=== PATIENT | female | born 1975 | race African-American/Black ===

== ENCOUNTER 2018-04-02 16:49 | Emergency (ER) | payer OTHER, MEDICAID, SELFPAY ==
[2018-04-02 16:56] VITALS: BP 129/88; PULSE 94; RESP 16; TEMP 36.8; O2SAT 100; BMI 41.6
--- NOTE | 2018-04-02 17:14 | DI.RAD.S_ITS ---
PROCEDURE: XR CHEST 2V INDICATIONS: L side chest pain, dyspnea TECHNIQUE: 2 views of the chest were acquired. COMPARISON: None. FINDINGS: Surgical changes and devices: None. Lungs and pleura: No pleural effusions or pneumothorax. Lungs are clear. Mediastinum: Mediastinal contours are normal. Heart size is normal. Bones and chest wall: No suspicious bony abnormalities. Soft tissues appear unremarkable. IMPRESSION: Normal for age. Source of current symptoms is not seen. Dictated by: Bonifacio Bruno M.D. on 04/02/2018 at 17:39 Approved by: Bonifacio Bruno M.D. on 04/02/2018 at 17:40
[2018-04-02 18:34] LABS: Add Manual Diff / Slide Review NO; Basophils Percent Auto 0.6 % (0-2); Eosinophils Percent Auto 0.8 % (2-4); Hemoglobin 14.5 g/dL (12.0-16.0); Lymphocytes Percent Auto 29.3 % (25-40); Mean Corpuscular HGB Conc 34.5 % (30-36); Mean Corpuscular Hemoglobin 31.1 PG (26-34); Mean Corpuscular Volume 90.2 fL (80-100); Monocytes Percent Auto 9.1 % (3-14); Neutrophils Absolute Auto 5000 /uL (3000-5900); Neutrophils Percent Auto 60.2 % (50-75); Platelet Count 201 X10^3/uL (150-400); Red Blood Cell Count 4.66 X10^6/uL (4.0-5.2); Red Cell Distribution Width 12.2 % (11.6-14.8); White Blood Cell Count 8.3 X10^3/uL (4.5-11.0)
[2018-04-02 18:42] LABS: Alanine Aminotransferase 54 IU/L (9-52); Albumin 4.1 g/dL (3.5-5.0); Albumin Globulin Ratio 1.2 (1.0-2.8); Alkaline Phosphatase 58 U/L (38-126); Aspartate Aminotransferase 32 IU/L (14-36); Bilirubin Total 0.7 mg/dL (0.2-1.3); Blood Urea Nitrogen 8 mg/dL (7-17); Calcium 9.3 mg/dL (8.4-10.2); Carbon Dioxide 27 mmol/L (22-32); Chloride 102 mmol/L (98-107); Creatine Kinase 47 U/L (30-135); Estimated Glomerular Filt Rate > 60.0 mL/min (>60); Globulin 3.3 g/dL (1.7-4.1); Glucose 147 mg/dL (70-100); HEMOLYSIS < 15 (0-50); Lipase 43 U/L (23-300); Potassium 3.8 mmol/L (3.4-5.1); Sodium 142 mmol/L (137-145); Total Protein 7.4 g/dL (6.3-8.2)
[2018-04-02 18:55] LABS: Troponin I < 0.012 ng/mL (0.01-0.034)
--- NOTE | 2018-04-02 19:48 | DI.CT.S_ITS ---
PROCEDURE: CT ANGIO CHEST PE PROTOCOL INDICATIONS: CP, SOB, travel, smoking. pleuritic. TECHNIQUE: After the administration of intravenous contrast, 2 mm thick sections acquired from the pulmonary apices to the posterior costophrenic angles. 3-dimensional maximum intensity projection (MIP) coronal and sagittal reformats were then acquired through the thorax. For radiation dose reduction, the following was used: automated exposure control, adjustment of mA and/or kV according to patient size. COMPARISON: [facility], , XR CHEST 2V, 04/02/2018, 16:51. FINDINGS: Image quality: Excellent. Pulmonary arteries: Pulmonary arteries are normal in size, and demonstrate no intraluminal filling defects to suggest central pulmonary embolism. Lungs and pleura: Lungs are clear. No pleural effusions or pneumothorax. Central and peripheral airways are patent. Mediastinum: Heart size is normal, without pericardial effusion. No mediastinal or hilar adenopathy. Thoracic aorta is normal in caliber and enhancement. Esophagus is normal in caliber, without hiatal hernia. Bones and chest wall: No suspicious bony lesions. Ribs and thoracic spine appear intact throughout. Thyroid gland appears normal. No axillary or supraclavicular adenopathy. Abdomen: Visualized upper abdominal solid organs appear normal in the early arterial phase of enhancement except for generalized fatty infiltration throughout the liver. IMPRESSION: No pulmonary embolus seen. Moderately reduced inspiratory volume. Fatty infiltration throughout the liver. No definite acute disease. Dictated by: Bonifacio Bruno M.D. on 04/02/2018 at 20:41 Approved by: Bonifacio Bruno M.D. on 04/02/2018 at 20:43
[2018-04-02 19:59] VITALS: BP 117/86; PULSE 77; RESP 18; O2SAT 98
--- NOTE | 2018-04-02 19:59 | ED_ITS ---
HPI - Chest Pain General Chief Complaint: Chest Pain Stated Complaint: SOB, CP Time Seen by Provider: 04/02/18 19:32 Source: patient Mode of arrival: ambulatory Limitations: no limitations History of Present Illness HPI narrative: 42-year-old former smoker and diabetic presents to the emergency department with a chief complaint of sharp and stabbing left anterior chest pain that started at 9:00 a.m.. It has been gradually worsening over the course of the day but she denies any radiation. Her pain is worse with motion, palpation and deep breath. She admits to increasing shortness of breath as well. She denies any history of the same. She denies any recent illness with runny nose, sore throat or cough. She does have a history of recent travel but denies any cancer, prior clots, injuries or surgeries. MD complaint: chest pain Onset (ago): hour(s) Duration: intermittent Onset: during rest Pain location: left chest Severity: moderate Quality: sharp Pain radiation: none Relieving factors: nothing Exacerbating factors: inspiration, palpation and movement Context: recent travel Associated symptoms: dyspnea Related Data On Oral Contraceptives: No Previous Rx's Medication Instructions Recorded cyclobenzaprine 10 mg PO TID PRN #14 tab 04/02/18 Allergies Allergy/AdvReac Type Severity Reaction Status Date / Time aspirin Allergy Verified 04/02/18 18:01 Review of Systems Review of Systems All systems reviewed & are unremarkable except as noted in HPI and below Constitutional Denies chills, Denies fever(s), Denies lethargy and Denies weakness Eyes Denies change in vision, Denies eye discharge, Denies irritation and Denies loss of vision ENT Ears, Nose, Mouth, and Throat: Denies change in voice, Denies neck pain and Denies sore throat Cardiovascular Reports chest pain, Denies irregular heart rhythm, Denies lightheadedness, Denies palpitations, Reports dyspnea, Denies dyspnea on exertion and Denies orthopnea Respiratory Denies cough, Reports dyspnea, Denies dyspnea on exertion and Denies wheezing Gastrointestinal Gastrointestinal: Denies abdominal pain, Denies change in bowel habits, Denies diarrhea, Denies nausea and Denies vomiting Genitourinary Denies hematuria, Denies flank pain, Denies urinary incontinence and Denies urinary urgency Musculoskeletal Denies neck pain Integumentary/Breasts Denies pruritus, Denies erythema, Denies rash and Denies wounds Neurologic Denies confusion, Denies loss of vision and Denies weakness Psychiatric Denies anxiety, Denies confusion, Denies depression, Denies homicidal ideation and Denies suicidal ideation Endocrine Denies palpitations Hematologic/Lymphatic Denies easy bruising Allergic/Immunologic Denies wheezing [facility] Social History Smoking Status: Former smoker Exam Narrative Exam Narrative: 42-year-old female resting comfortably Initial Vital Signs Initial Vital Signs: Vital Signs Temperature 98.3 F 04/02/18 16:56 Pulse Rate 94 H 04/02/18 16:56 Respiratory Rate 16 04/02/18 16:56 Blood Pressure 129/88 04/02/18 16:56 Pulse Oximetry 100 04/02/18 16:56 Const General: cooperative, well developed and in distress Nutritional Appearance: well nourished Orientation: alert, awake, oriented x3 and not confused HENMT Head: normocephalic and atraumatic Ears: external ears normal and TM's normal bilaterally Nose: external nose normal and No nasal discharge Face and sinus: sinuses nontender, face symmetric, no sinus tenderness and No dry mucous membranes Mouth: oral mucosae normal and moist mucous membranes Teeth and gingiva: dentition normal Throat: tonsils normal and uvula midline Eyes General: appearance normal, both eyes and all related structures Eyelids: eyelids normal Conjunctivae: conjunctivae normal Sclera: sclerae normal Pupils: PERRL EOM: EOM intact bilaterally Neck Neck: normal visual inspection, trachea midline, No lymphadenopathy, No midline deformity and No JVD Lymphatic: No lymphedema Chest Chest: normal inspection of the chest Resp Effort & Inspection: normal respiratory effort, able to speak in complete sentences, no respiratory distress and no use of accessory muscles Auscultation: clear to auscultation bilaterally, no rales, no rhonchi and no wheezes Cardio Rate: regular rate Rhythm: regular rhythm Heart Sounds: no click, no gallops, no murmurs and no rubs Pulses: normal peripheral pulses GI Inspection: non-distended Palpation: soft, no hepatosplenomegaly, No guarding, No pulsatile mass and No tender Auscultation: normal bowel sounds Back/Spine/Pelvis Back: No CVA tenderness Cervical Spine: cervical ROM normal and No pain with cervical ROM Thoracic/Lumbar Spine: thoracic and lumbar spine normal to inspection Skin General: no rashes or lesions noted, No jaundice and No petechiae Neuro General: alert, oriented x3, gait normal and no focal motor deficits Speech: speech normal Extrem General: full ROM, no clubbing, cyanosis or edema, no pedal edema and no calf tenderness Psych Appearance: well kempt Mental Status: mental status grossly normal Attitude: cooperative Thought Content: normal and suicidality Judgment: judgment good Scores HEART Score Heart Score history: Slightly Suspicious Heart Score EKG: Normal Heart Score Age: < 45 years old Heart Score risk factors: 1-2 risk factors Heart Score troponin: < or = to normal limit Heart Score Total: 1 Course Orders Ordered: ED Orders 04/02/18 16:55 EKG-12 Lead Stat 04/02/18 17:14 Chest [XR chest 2V] Stat 04/02/18 18:20 Complete Blood Count AUTO DIFF Stat Comprehensive Metabolic Panel Stat Lipase Stat Troponin & CK Cardiac Panel Stat 04/02/18 19:48 CT angio chest PE protocol Stat EKG-12 Lead Stat 04/02/18 19:55 Troponin I Stat Discontinued Medications Cyclobenzaprine HCl (Flexeril 10 Mg Prepack) 1 bottle MISC SEEINSTR ONE Stop: 04/02/18 21:08 Last Admin: 04/02/18 21:31 Dose: 1 bottle Vital Signs - 8 hr 04/02/18 16:56 04/02/18 19:59 04/02/18 21:17 Temperature 98.3 F Pulse Rate 94 H 77 75 Respiratory Rate 16 18 14 Blood Pressure 129/88 Blood Pressure [Right Arm] 117/86 125/88 Pulse Oximetry 100 98 98 MDM - Chest Pain Medical Records Data Attestation: I reviewed the patient's medical records. Lab Data Attestation: I reviewed the patient's lab results. Result diagrams: 04/02/18 18:20 04/02/18 18:20 Lab Results 04/02/18 04/02/18 04/02/18 Range/Units 18:20 18:20 19:55 WBC 8.3 (4.5-11.0) X10^3/uL RBC 4.66 (4.0-5.2) X10^6/uL Hgb 14.5 (12.0-16.0) g/dL Hct 42.0 (36-46) % MCV 90.2 (80-100) fL MCH 31.1 (26-34) PG MCHC 34.5 (30-36) % RDW 12.2 (11.6-14.8) % Plt Count 201 (150-400) X10^3/uL Neut % (Auto) 60.2 (50-75) % Lymph % (Auto) 29.3 (25-40) % [place] % (Auto) 9.1 (3-14) % Eos % (Auto) 0.8 L (2-4) % Baso % (Auto) 0.6 (0-2) % Neut # (Auto) 5000 (8120-4570) /uL Sodium 142 (137-145) mmol/L Potassium 3.8 (3.4-5.1) mmol/L Chloride 102 (98-107) mmol/L Carbon Dioxide 27 (22-32) mmol/L BUN 8 (7-17) mg/dL Creatinine 0.40 L (0.52-1.04) mg/dL Estimated GFR > 60.0 (>60) mL/min BUN/Creatinine Ratio 20.0 (6-22) Glucose 147 H (70-100) mg/dL Calcium 9.3 (8.4-10.2) mg/dL Total Bilirubin 0.7 (0.2-1.3) mg/dL AST 32 (14-36) IU/L ALT 54 H (9-52) IU/L Alkaline Phosphatase 58 (38-126) U/L Total Creatine Kinase 47 (30-135) U/L CK-MB (CK-2) TNP CK-MB (CK-2) Rel Index TNP Troponin I < 0.012 < 0.012 (0.01-0.034) ng/mL Total Protein 7.4 (6.3-8.2) g/dL Albumin 4.1 (3.5-5.0) g/dL Globulin 3.3 (1.7-4.1) g/dL Albumin/Globulin Ratio 1.2 (1.0-2.8) Lipase 43 (23-300) U/L Imaging Data Chest x-ray: Radiologist's impression: [address] [place] [address] XRay Report Signed Patient: KavonKrystle#: [id number] : 1975Acct:[id number] Age/Sex: 42 / FDate of Service: 04/02/18 Loc: ED Accession Number: [id number] Procedure: XR chest 2V Ordering Provider: Shelby Cuevas D.O. PROCEDURE: XR CHEST 2V INDICATIONS: L side chest pain, dyspnea TECHNIQUE: 2 views of the chest were acquired. COMPARISON: None. FINDINGS: Surgical changes and devices: None. Lungs and pleura: No pleural effusions or pneumothorax. Lungs are clear. Mediastinum: Mediastinal contours are normal. Heart size is normal. Bones and chest wall: No suspicious bony abnormalities. Soft tissues appear unremarkable. IMPRESSION: Normal for age. Source of current symptoms is not seen. Dictated by: Bonifacio Bruno M.D. on 04/02/2018 at 17:39 Approved by: Bonifacio Bruno M.D. on 04/02/2018 at 17:40 CT scan - chest: Radiologist's impression: No PE or other acute process ECG Data Attestation: I personally reviewed and interpreted this ECG as follows: Prior ECG tracings: not available for review Interpretation: EKG is normal sinus rhythm and free of any signs of ischemia or ectopy. MDM Narrative Medical decision making narrative: Cardiac ischemia considered as a diagnosis but sharp, stabbing reproducible pain and lack of other more traditional cardiac equivalent symptoms in the setting of multiple normal EKGs, repeat troponins normal, and low heart score make ischemia less likely Pulmonary embolism considered given pleuritic type chest pain and associated dyspnea but CT angiogram, normal labs and vital signs make this less likely Discharge Plan Departure Patient Disposition: Home Clinical Impression: Pleurisy Discharge Date/Time: 04/02/18 21:39 Interventions: ED Discharge Assessment Last Done: 04/02/18 21:36 Instructions: DI for Pleurisy Activity Restrictions/Additional Instructions: *You have been diagnosed with pleurisy *What to do: *Take medications as directed: [id number] Tylenol and Motrin for pain *Follow up with your primary care provider in 2-3 days, call for an appointment. Let them know you were seen in the Emergency Department and that we ask that you be seen in follow up *Return to ER if you should have any new, worsening or concerning symptoms Prescriptions: New cyclobenzaprine 10 mg tablet 10 mg PO TID PRN (Reason: muscle spasm) Qty: 14 RF: 0 Referrals: Ventura Soto MD [Physician] - Diaz Damon MD [Physician] - Paty Schuster DO [Physician] - Stand Alone Forms: Work/School Restrictions
[2018-04-02 20:43] LABS: Troponin I < 0.012 ng/mL (0.01-0.034)
[2018-04-02 21:17] VITALS: BP 125/88; PULSE 75; RESP 14; O2SAT 98
[2018-04-02] MEDS: CYCLOBENZAPRINE 10 MG PREPACK 1 BOTTLE MISC (21:31)
== END 2018-04-02 21:39 | disposition home or self-care (01) ==
PROVIDERS: Emergency Medicine; Emergency Provider Emergency Medicine
DX: R09.1 Pleurisy (principal); R07.89 Other chest pain
CPT/HCPCS: 36415; 36591; 71046; 71275; 80053; 82550; 83690; 84484; 85025; 93005; 93010; 99282; 99285; Q9967

== ENCOUNTER 2018-05-06 17:19 | Observation (INO) | payer OTHER, MEDICAID, SELFPAY ==
[2018-05-06 17:25] VITALS: BP 147/98; PULSE 72; RESP 16; TEMP 36.2; O2SAT 98; BMI 36.9
[2018-05-06 18:53] LABS: Add Manual Diff / Slide Review NO; Basophils Percent Auto 0.3 % (0-2); Eosinophils Percent Auto 0.1 % (2-4); Hematocrit 43.2 % (36-46); Hemoglobin 14.9 g/dL (12.0-16.0); Lymphocytes Percent Auto 14.6 % (25-40); Mean Corpuscular HGB Conc 34.5 % (30-36); Mean Corpuscular Hemoglobin 31.3 PG (26-34); Mean Corpuscular Volume 90.7 fL (80-100); Monocytes Percent Auto 4.9 % (3-14); Neutrophils Absolute Auto 8300 /uL (3000-5900); Neutrophils Percent Auto 80.1 % (50-75); Platelet Count 222 X10^3/uL (150-400); Red Blood Cell Count 4.76 X10^6/uL (4.0-5.2); Red Cell Distribution Width 12.4 % (11.6-14.8); White Blood Cell Count 10.3 X10^3/uL (4.5-11.0)
[2018-05-06 19:01] LABS: INR 1.1 (0.9-1.3); Prothrombin Time 12.4 SECONDS (10.1-12.7)
[2018-05-06 19:04] LABS: PTT Partial Thromboplastin Tim 30 SECONDS (26.4-36.2)
[2018-05-06 19:06] LABS: Alanine Aminotransferase 49 IU/L (9-52); Albumin 4.4 g/dL (3.5-5.0); Albumin Globulin Ratio 1.3 (1.0-2.8); Alkaline Phosphatase 64 U/L (38-126); Aspartate Aminotransferase 25 IU/L (14-36); BUN Creatinine Ratio 17.5 (6-22); Bilirubin Total 0.5 mg/dL (0.2-1.3); Blood Urea Nitrogen 7 mg/dL (7-17); Calcium 8.9 mg/dL (8.4-10.2); Carbon Dioxide 27 mmol/L (22-32); Chloride 100 mmol/L (98-107); Estimated Glomerular Filt Rate > 60.0 mL/min (>60); Globulin 3.5 g/dL (1.7-4.1); Glucose 276 mg/dL (70-100); HEMOLYSIS < 15 (0-50); Lipase 45 U/L (23-300); Potassium 4.1 mmol/L (3.4-5.1); Sodium 139 mmol/L (137-145); Total Protein 7.9 g/dL (6.3-8.2)
--- NOTE | 2018-05-06 20:40 | ED_ITS ---
HPI - Abdominal Pain <YOUSIF Singleton - Last Filed: 05/06/18 22:24> General Chief Complaint: Abdominal Pain Stated Complaint: ABD PAIN Time Seen by Provider: 05/06/18 20:40 Source: patient Mode of arrival: ambulatory Limitations: no limitations History of Present Illness HPI narrative: 42-year-old female with history of type 2 diabetes and PCOS that is a former smoker here for complaint of pain into her left lower abdomen since earlier today. She denies any fevers or chills. She denies any urinary symptoms. No vaginal discharge or bleeding. She denies any trauma to the abdominal area. She is tolerating p.o. intake. she denies any flank pain. No other concerns or complaints. She denies any stressors relievers of her discomfort. MD complaint: other Related Data Previous Rx's Medication Instructions Recorded cyclobenzaprine 10 mg PO TID PRN #14 tab 04/02/18 Allergies Allergy/AdvReac Type Severity Reaction Status Date / Time aspirin Allergy Verified 05/06/18 17:25 naproxen [From Aleve] Allergy Verified 05/06/18 17:25 Review of Systems <YOUSIF Singleton - Last Filed: 05/06/18 22:24> Constitutional Denies chills, Denies fever(s), Denies lethargy and Denies weakness Eyes Denies change in vision, Denies eye discharge, Denies irritation and Denies loss of vision ENT Ears, Nose, Mouth, and Throat: Denies change in voice, Denies neck pain and Denies sore throat Cardiovascular Denies chest pain, Denies irregular heart rhythm, Denies lightheadedness, Denies palpitations, Denies dyspnea, Denies dyspnea on exertion and Denies orthopnea Respiratory Denies cough, Denies dyspnea, Denies dyspnea on exertion and Denies wheezing Gastrointestinal Gastrointestinal: Reports abdominal pain, Denies change in bowel habits, Denies diarrhea, Denies nausea and Denies vomiting Genitourinary Denies hematuria, Denies flank pain, Denies urinary incontinence and Denies urinary urgency Musculoskeletal Denies neck pain Integumentary/Breasts Denies pruritus, Denies erythema, Denies rash and Denies wounds Neurologic Denies confusion, Denies loss of vision and Denies weakness Psychiatric Denies anxiety, Denies confusion, Denies depression, Denies homicidal ideation and Denies suicidal ideation Endocrine Denies palpitations Hematologic/Lymphatic Denies easy bruising Allergic/Immunologic Denies wheezing Exam <YOUSIF Singleton - Last Filed: 05/06/18 22:24> Initial Vital Signs Initial Vital Signs: Vital Signs Temperature 97.1 F L 05/06/18 17:25 Pulse Rate 72 05/06/18 17:25 Respiratory Rate 16 05/06/18 17:25 Blood Pressure 147/98 H 05/06/18 17:25 Pulse Oximetry 98 05/06/18 17:25 Const General: cooperative and well developed Nutritional Appearance: well nourished Orientation: alert, awake, oriented x3 and not confused HENNH Mouth: oral mucosae normal, oropharynx normal and moist mucous membranes Eyes Conjunctivae: conjunctivae normal Sclera: sclerae normal Pupils: PERRL EOM: EOM intact bilaterally GI Inspection: non-distended Palpation: soft, no hepatosplenomegaly, No guarding, No pulsatile mass and tender ( tenderness left lower quadrant) Auscultation: normal bowel sounds General: No CVA tenderness Skin General: no rashes or lesions noted, No jaundice and No petechiae Neuro General: alert, oriented x3, gait normal and no focal motor deficits Speech: speech normal <Yuliana Rojas DO - Last Filed: 05/07/18 03:12> Initial Vital Signs Initial Vital Signs: Vital Signs Temperature 97.1 F L 05/06/18 17:25 Pulse Rate 72 05/06/18 17:25 Respiratory Rate 16 05/06/18 17:25 Blood Pressure 147/98 H 05/06/18 17:25 Pulse Oximetry 98 05/06/18 17:25 Course <YUOSIF Singleton - Last Filed: 05/06/18 22:24> Orders Ordered: ED Orders 05/06/18 18:45 Complete Blood Count AUTO DIFF Stat Comprehensive Metabolic Panel Stat Lipase Stat Partial Thromboplastin Time Stat Prothrombin Time INR Stat 05/06/18 20:55 CT abdomen pelvis w con Stat 05/06/18 22:14 US pelvic complete Stat Hydrocodone Bitart/Acetaminophen ([place] 5/325) 1 tab PO Q30MIN PRN PRN Reason: Mild or moderate pain Fentanyl (Sublimaze) 50 mcg IV Q5MIN PRN PRN Reason: Pain, Moderate (4-6) Hydromorphone HCl (Dilaudid) 0.5 mg IV Q5MIN PRN PRN Reason: Pain, Moderate (4-6) Lactated Ringer's (Lactated Ringers) 1,000 mls @ 42 mls/hr IV NOW ONE Stop: 05/08/18 01:53 Last Admin: 05/07/18 02:05 Dose: 42 mls/hr Lactated Ringer's (Lactated Ringers) 1,000 mls @ 42 mls/hr IV CONT MOIZ Metoclopramide HCl (Reglan) 10 mg IV NOW PRN PRN Reason: Nausea And Vomiting Ondansetron HCl (Zofran) 4 mg IV NOW PRN PRN Reason: Nausea And Vomiting Oxycodone/Acetaminophen (Percocet 5/325) 1 tab PO Q30MIN PRN PRN Reason: Mild or moderate pain Discontinued Medications Hydromorphone HCl (Dilaudid) 0.5 mg IV NOW ONE Stop: 05/06/18 20:58 Last Admin: 05/06/18 21:29 Dose: 0.5 mg Hydromorphone HCl (Dilaudid) 0.5 mg IV NOW ONE Stop: 05/06/18 23:12 Last Admin: 05/06/18 23:49 Dose: 0.5 mg Sodium Chloride (Normal Saline 0.9%) 1,000 mls @ 1,000 mls/hr IV BOLUS ONE Stop: 05/06/18 21:54 Last Infusion: 05/07/18 00:30 Dose: 0 mls/hr Admin: 05/06/18 21:30 Dose: 1,000 mls/hr Insulin Human Regular (Humulin R) 4 unit SUBCUT NOW ONE Stop: 05/07/18 02:13 Last Admin: 05/07/18 02:10 Dose: 4 unit Ondansetron HCl (Zofran) 4 mg IV NOW ONE Stop: 05/06/18 20:58 Last Admin: 05/06/18 21:30 Dose: 4 mg Vital Signs - 8 hr 05/07/18 01:30 05/07/18 02:08 Temperature 97.7 F Pulse Rate 75 103 H Respiratory Rate 16 15 Blood Pressure 134/78 Blood Pressure [Left Arm] 142/85 H Pulse Oximetry 98 98 <Yuliana Rojas DO - Last Filed: 05/07/18 03:12> Orders Ordered: ED Orders 05/06/18 18:45 Complete Blood Count AUTO DIFF Stat Comprehensive Metabolic Panel Stat Lipase Stat Partial Thromboplastin Time Stat Prothrombin Time INR Stat 05/06/18 20:55 CT abdomen pelvis w con Stat 05/06/18 22:14 US pelvic complete Stat Hydrocodone Bitart/Acetaminophen ([place] 5/325) 1 tab PO Q30MIN PRN PRN Reason: Mild or moderate pain Fentanyl (Sublimaze) 50 mcg IV Q5MIN PRN PRN Reason: Pain, Moderate (4-6) Hydromorphone HCl (Dilaudid) 0.5 mg IV Q5MIN PRN PRN Reason: Pain, Moderate (4-6) Lactated Ringer's (Lactated Ringers) 1,000 mls @ 42 mls/hr IV NOW ONE Stop: 05/08/18 01:53 Last Admin: 05/07/18 02:05 Dose: 42 mls/hr Lactated Ringer's (Lactated Ringers) 1,000 mls @ 42 mls/hr IV CONT MOIZ Metoclopramide HCl (Reglan) 10 mg IV NOW PRN PRN Reason: Nausea And Vomiting Ondansetron HCl (Zofran) 4 mg IV NOW PRN PRN Reason: Nausea And Vomiting Oxycodone/Acetaminophen (Percocet 5/325) 1 tab PO Q30MIN PRN PRN Reason: Mild or moderate pain Discontinued Medications Hydromorphone HCl (Dilaudid) 0.5 mg IV NOW ONE Stop: 05/06/18 20:58 Last Admin: 05/06/18 21:29 Dose: 0.5 mg Hydromorphone HCl (Dilaudid) 0.5 mg IV NOW ONE Stop: 05/06/18 23:12 Last Admin: 05/06/18 23:49 Dose: 0.5 mg Sodium Chloride (Normal Saline 0.9%) 1,000 mls @ 1,000 mls/hr IV BOLUS ONE Stop: 05/06/18 21:54 Last Infusion: 05/07/18 00:30 Dose: 0 mls/hr Admin: 05/06/18 21:30 Dose: 1,000 mls/hr Insulin Human Regular (Humulin R) 4 unit SUBCUT NOW ONE Stop: 05/07/18 02:13 Last Admin: 05/07/18 02:10 Dose: 4 unit Ondansetron HCl (Zofran) 4 mg IV NOW ONE Stop: 05/06/18 20:58 Last Admin: 05/06/18 21:30 Dose: 4 mg Vital Signs - 8 hr 05/07/18 01:30 05/07/18 02:08 Temperature 97.7 F Pulse Rate 75 103 H Respiratory Rate 16 15 Blood Pressure 134/78 Blood Pressure [Left Arm] 142/85 H Pulse Oximetry 98 98 MDM - Abdominal Pain <YOUSIF Singleton - Last Filed: 05/06/18 22:24> Differential Diagnosis Differential diagnosis: Likely abdominal pain Lab Data Result diagrams: 05/06/18 18:45 05/06/18 18:45 Lab Results 05/06/18 05/06/18 05/06/18 Range/Units 18:45 18:45 18:45 WBC 10.3 (4.5-11.0) X10^3/uL RBC 4.76 (4.0-5.2) X10^6/uL Hgb 14.9 (12.0-16.0) g/dL Hct 43.2 (36-46) % MCV 90.7 (80-100) fL MCH 31.3 (26-34) PG MCHC 34.5 (30-36) % RDW 12.4 (11.6-14.8) % Plt Count 222 (150-400) X10^3/uL Neut % (Auto) 80.1 H (50-75) % Lymph % (Auto) 14.6 L (25-40) % [place] % (Auto) 4.9 (3-14) % Eos % (Auto) 0.1 L (2-4) % Baso % (Auto) 0.3 (0-2) % Neut # (Auto) 8300 H (6960-4496) /uL PT 12.4 (10.1-12.7) SECONDS INR 1.1 (0.9-1.3) APTT 30 (26.4-36.2) SECONDS Sodium 139 (137-145) mmol/L Potassium 4.1 (3.4-5.1) mmol/L Chloride 100 (98-107) mmol/L Carbon Dioxide 27 (22-32) mmol/L BUN 7 (7-17) mg/dL Creatinine 0.40 L (0.52-1.04) mg/dL Estimated GFR > 60.0 (>60) mL/min BUN/Creatinine Ratio 17.5 (6-22) Glucose 276 H (70-100) mg/dL Calcium 8.9 (8.4-10.2) mg/dL Total Bilirubin 0.5 (0.2-1.3) mg/dL AST 25 (14-36) IU/L ALT 49 (9-52) IU/L Alkaline Phosphatase 64 (38-126) U/L Total Protein 7.9 (6.3-8.2) g/dL Albumin 4.4 (3.5-5.0) g/dL Globulin 3.5 (1.7-4.1) g/dL Albumin/Globulin Ratio 1.3 (1.0-2.8) Lipase 45 (23-300) U/L Point of care testing: Point of Care Testing Glucose POC 180 Urine Dip Bedside Urine Glucose 1000 mg/dl Bedside Urine Bilirubin - Negative Bedside Urine Ketone +++ 80 Urine Specific [place] 1.020 Bedside Urine Occult Blood - Negative Bedside Urine pH 7.0 Bedside Urine Protein +/- 15 Bedside Urine Urobilinogen - Negative Bedside Urine Nitrite - Negative Bedside Urine Leukocytes - Negative Esterase Imaging Data CT scan - abdomen: Radiologist's impression: [place] [address] CT Scan Report Signed Patient: Krystle Jacobson#: [id number] : 1975Acct:[id number] Age/Sex: 42 / FDate of Service: 05/06/18 Loc: ED Accession Number: [id number] Procedure: CT abdomen pelvis w con Ordering Provider: Raymon Sotelo PROCEDURE: CT ABDOMEN PELVIS W CON INDICATIONS: pain to bilateral lower abdomen TECHNIQUE: After the administration of intravenous contrast, 5 mm thick sections acquired from the diaphragm to the symphysis. 5 mm coronal and sagittal reformats were acquired. For radiation dose reduction, the following was used: automated exposure control, adjustment of mA and/or kV according to patient size. COMPARISON: None. FINDINGS: Image quality: Excellent. ABDOMEN: Lung bases: Lung bases are clear. Heart size is normal. Solid organs: Liver is enlarged, and demonstrate diffusely decreased density. Gallbladder is within normal limits. Biliary system is non dilated. Pancreas enhances normally. Spleen is normal in size and enhancement. No adrenal nodules. Kidneys demonstrate normal size and enhancement, without hydronephrosis. Peritoneum and bowel: Bowel loops demonstrate normal wall thickness and caliber. No free fluid or air. Normal appendix. Nodes and vessels: No retroperitoneal or mesenteric adenopathy by size criteria. Aorta and inferior vena cava are normal in size. Miscellaneous: No ventral hernias. PELVIS: Genitourinary: Bladder wall thickness is normal. 50 mm diameter region of heterogeneous mixed low and high density within the left ovary is present, with a hematocrit level. Miscellaneous: No inguinal hernias or adenopathy. Bones: No suspicious bony lesions. Large expansile sacral cyst is present. No vertebral body compression fractures. IMPRESSION: 1. Findings suggestive of a hemorrhagic left ovarian cyst; further assessment with ultrasound is recommended. 2. Normal appendix. 3. Hepatic steatosis. 4. Large expansile sacral cyst. This could be further assessed with MRI. Dictated by: Nara Stephens M.D. on 05/06/2018 at 21:56 Approved by: Nara Stephens M.D. on 05/06/2018 at 21:59 MDM Narrative Medical decision making narrative: CBC shows elevated neutrophils otherwise is unremarkable. Coags are unremarkable. Chem panel was shows glucose at 276 otherwise is unremarkable. Urinalysis was negative for urinary tract infection. CT the abdomen was obtained and shows findings consistent with left hemorrhagic cyst. pelvic Ultrasound is ordered for further evaluation. incidental finding of sacral cyst is seen and also hepatic steatosis. She is encouraged to establish primary care for follow-up. Due to change of shift care is turned over to Dr. Rojas. <Yuliana Rojas, DO - Last Filed: 05/07/18 03:12> Lab Data Attestation: I reviewed the patient's lab results. Lab Results 05/06/18 05/06/18 05/06/18 Range/Units 18:45 18:45 18:45 WBC 10.3 (4.5-11.0) X10^3/uL RBC 4.76 (4.0-5.2) X10^6/uL Hgb 14.9 (12.0-16.0) g/dL Hct 43.2 (36-46) % MCV 90.7 (80-100) fL MCH 31.3 (26-34) PG MCHC 34.5 (30-36) % RDW 12.4 (11.6-14.8) % Plt Count 222 (150-400) X10^3/uL Neut % (Auto) 80.1 H (50-75) % Lymph % (Auto) 14.6 L (25-40) % [place] % (Auto) 4.9 (3-14) % Eos % (Auto) 0.1 L (2-4) % Baso % (Auto) 0.3 (0-2) % Neut # (Auto) 8300 H (0566-7248) /uL PT 12.4 (10.1-12.7) SECONDS INR 1.1 (0.9-1.3) APTT 30 (26.4-36.2) SECONDS Sodium 139 (137-145) mmol/L Potassium 4.1 (3.4-5.1) mmol/L Chloride 100 (98-107) mmol/L Carbon Dioxide 27 (22-32) mmol/L BUN 7 (7-17) mg/dL Creatinine 0.40 L (0.52-1.04) mg/dL Estimated GFR > 60.0 (>60) mL/min BUN/Creatinine Ratio 17.5 (6-22) Glucose 276 H (70-100) mg/dL Calcium 8.9 (8.4-10.2) mg/dL Total Bilirubin 0.5 (0.2-1.3) mg/dL AST 25 (14-36) IU/L ALT 49 (9-52) IU/L Alkaline Phosphatase 64 (38-126) U/L Total Protein 7.9 (6.3-8.2) g/dL Albumin 4.4 (3.5-5.0) g/dL Globulin 3.5 (1.7-4.1) g/dL Albumin/Globulin Ratio 1.3 (1.0-2.8) Lipase 45 (23-300) U/L Point of care testing: Point of Care Testing Glucose POC 180 Urine Dip Bedside Urine Glucose 1000 mg/dl Bedside Urine Bilirubin - Negative Bedside Urine Ketone +++ 80 Urine Specific [place] 1.020 Bedside Urine Occult Blood - Negative Bedside Urine pH 7.0 Bedside Urine Protein +/- 15 Bedside Urine Urobilinogen - Negative Bedside Urine Nitrite - Negative Bedside Urine Leukocytes - Negative Esterase Imaging Data US - abdomen: Radiologist's impression: heel burnisher report: Solid heterogenicity a Coke mass in mid pelvis without discernible flow may represent left ovarian torsion. Uterus is surgically absent. Normal appearing right ovary. Echogenic mass measuring 5.9 x 4.4 x 5.7 cm likely solid MDM Narrative Medical decision making narrative: I have seen evaluated patient myself she remains tender in her left lower quadrant. Awaiting ultrasound. Left hemorrhagic cyst is seen on CT. Ultrasound confirms probable torsion 12:05 a.m. I spoke with Dr. Quinonez in regards to ultrasound report and CT both concerning for torsion [address] Montana on-call for voyage management system operator will be into ED to evaluate patient. Patient going to OR. Discharge Plan Departure Patient Disposition: Admitted as Observation Clinical Impression: Ovarian torsion, Ovarian cyst Discharge Date/Time: 05/07/18 01:45 Interventions: ED Discharge Assessment Last Done: 05/07/18 02:02 Admit Date/Time: 05/07/18 01:25 Admit Provider: Ami Montana
--- NOTE | 2018-05-06 20:55 | DI.CT.S_ITS ---
PROCEDURE: CT ABDOMEN PELVIS W CON INDICATIONS: pain to bilateral lower abdomen TECHNIQUE: After the administration of intravenous contrast, 5 mm thick sections acquired from the diaphragm to the symphysis. 5 mm coronal and sagittal reformats were acquired. For radiation dose reduction, the following was used: automated exposure control, adjustment of mA and/or kV according to patient size. COMPARISON: None. FINDINGS: Image quality: Excellent. ABDOMEN: Lung bases: Lung bases are clear. Heart size is normal. Solid organs: Liver is enlarged, and demonstrate diffusely decreased density. Gallbladder is within normal limits. Biliary system is non dilated. Pancreas enhances normally. Spleen is normal in size and enhancement. No adrenal nodules. Kidneys demonstrate normal size and enhancement, without hydronephrosis. Peritoneum and bowel: Bowel loops demonstrate normal wall thickness and caliber. No free fluid or air. Normal appendix. Nodes and vessels: No retroperitoneal or mesenteric adenopathy by size criteria. Aorta and inferior vena cava are normal in size. Miscellaneous: No ventral hernias. PELVIS: Genitourinary: Bladder wall thickness is normal. 50 mm diameter region of heterogeneous mixed low and high density within the left ovary is present, with a hematocrit level. Miscellaneous: No inguinal hernias or adenopathy. Bones: No suspicious bony lesions. Large expansile sacral cyst is present. No vertebral body compression fractures. IMPRESSION: 1. Findings suggestive of a hemorrhagic left ovarian cyst; further assessment with ultrasound is recommended. 2. Normal appendix. 3. Hepatic steatosis. 4. Large expansile sacral cyst. This could be further assessed with MRI. Dictated by: Nara Stephens M.D. on 05/06/2018 at 21:56 Approved by: Nara Stephens M.D. on 05/06/2018 at 21:59
[2018-05-06] MEDS: HYDROMORPHONE 1 MG INJ 0.5 MG IV ×2 (21:29→23:49)
[2018-05-06] MEDS: ONDANSETRON 4 MG/2 ML INJ IV (21:30)
[2018-05-06] MEDS: SODIUM CHLORIDE 0.9% 1,000 ML 1000 ML IV (21:30)
--- NOTE | 2018-05-06 22:14 | DI.US.S_ITS ---
PROCEDURE: US PELVIC COMPLETE INDICATIONS: Ruptured ovarian cyst to left ovary seen on CT TECHNIQUE: Real-time scanning was performed of the pelvic organs, with image documentation. Additional endovaginal scanning was necessary due to incomplete visualization of the adnexal and endometrial structures by transabdominal scanning. COMPARISON: None. FINDINGS: Transabdominal scanning: Limited scanning through the kidneys shows no hydronephrosis. No pathologic free abdominal or pelvic fluid. Endovaginal scanning: Uterus: Uterus is surgically absent. Ovaries: Right adnexa measures 2.8 x 1.9 x 2.9 cm. Right adnexa is sonographically normal there is a 5.9 x 4.4 x 5.7 cm mid pelvic mass. Color Doppler evaluation demonstrates no increased vascularity within the lesion. Lesion may represent a left ovarian torsion. IMPRESSION: 1. Heterogeneously echogenic mid pelvic mass which lacks discernible internal vascular flow. Finding is nonspecific, but may represent left ovarian torsion. Recommend gynecologic consultation. 2. Uterus is surgically absent. 3. Right adnexa is sonographically normal. Dictated by: Judith Valentin MD, PhD on 05/07/2018 at 8:29 Approved by: Judith Valentin MD, PhD on 05/07/2018 at 8:32
[2018-05-07] VITALS (11 sets, daily range): BP systolic 119–142; BP diastolic 77–89; PULSE 75–103; RESP 15–20; TEMP 36.4–36.6; O2SAT 89–99; BMI 36.9
--- NOTE | 2018-05-07 00:52 | PC.NURSE ---
Dr Montana at bedside.
--- NOTE | 2018-05-07 01:17 | PM.GYNHP.1 ---
History of Present Illness Reason for admission: other (Left ovarian mass possible torsion) Narrative: Krystle Jacobson is a 42 year old female presented to the emergency room complaining of pain and in evaluation found to have a left ovarian mass possible torsion [facility] Medical History Diabetes (Acute) Surgical History S/P hysterectomy (Acute) Social History Smoking Status: Former smoker Meds Home Medications Medication Instructions Recorded Confirmed Type cyclobenzaprine 10 mg PO TID PRN #14 tab 04/02/18 Rx Allergies Allergy/AdvReac Type Severity Reaction Status Date / Time aspirin Allergy Verified 05/06/18 17:25 naproxen [From Aleve] Allergy Verified 05/06/18 17:25 Review of Systems Review of Systems Patient complains mild nausea. She complains of left lower quadrant pain. All systems reviewed & are unremarkable except as noted in HPI and below Exam Vital Signs (past 8 hours): - 05/06/18 17:25 Temperature 97.1 F L Pulse Rate 72 Respiratory Rate 16 Blood Pressure 147/98 H Pulse Oximetry 98 Oxygen Delivery Method Room Air Narrative Exam Narrative: Patient's HEENT exam within normal limits. No thyromegaly. Lungs are clear to auscultation percussion. Heart is regular rate and rhythm no S3-S4 or murmurs. Abdomen is soft with tenderness left lower quadrant without rebound. Objective Imaging US - abdomen: Radiologist's impression: Solid heterogeneous echogenic mass mid pelvis without discernible blood flow may represent left ovarian torsion Labs Result Diagrams: 05/06/18 18:45 05/06/18 18:45 Labs: Laboratory Results - last 24 hr 05/06/18 05/06/18 05/06/18 18:45 18:45 18:45 WBC 10.3 RBC 4.76 Hgb 14.9 Hct 43.2 MCV 90.7 MCH 31.3 MCHC 34.5 RDW 12.4 Plt Count 222 Neut % (Auto) 80.1 H Lymph % (Auto) 14.6 L [place] % (Auto) 4.9 Eos % (Auto) 0.1 L Baso % (Auto) 0.3 Neut # (Auto) 8300 H PT 12.4 INR 1.1 APTT 30 Sodium 139 Potassium 4.1 Chloride 100 Carbon Dioxide 27 BUN 7 Creatinine 0.40 L Estimated GFR > 60.0 BUN/Creatinine Ratio 17.5 Glucose 276 H Calcium 8.9 Total Bilirubin 0.5 AST 25 ALT 49 Alkaline Phosphatase 64 Total Protein 7.9 Albumin 4.4 Globulin 3.5 Albumin/Globulin Ratio 1.3 Lipase 45 Assessment & Plan (1) Ovarian cyst: Qualifiers: Laterality: left Qualified Code(s): N83.202 - Unspecified ovarian cyst, left side Current visit: Yes Status: Acute Plan: Assessment/Plan Narrative: Left lower quadrant pain and 5 cm mass that may represent left ovarian torsion. Discussed options of monitoring versus proceeding with laparoscopy. If torsion we may be able to save ovary by untwisting or may need to remove ovary. Consent form was reviewed with the patient. Risk of damage to intestines, bladder, ureters, possible need to open abdomen,low risk for infection. Consent form was signed and questions answered. Discussed post op discomforts. Patient will be discharged after surgery as soon as ambulatory and able to tolerate oral pain meds.
--- NOTE | 2018-05-07 01:28 | P.HPOB_ITS ---
History of Present Illness Reason for admission: other (Left ovarian mass possible torsion) Narrative: Krystle Jacobson is a 42 year old female presented to the emergency room complaining of pain and in evaluation found to have a left ovarian mass possible torsion [facility] Medical History Diabetes (Acute) Surgical History S/P hysterectomy (Acute) Social History Smoking Status: Former smoker Meds Home Medications Medication Instructions Recorded Confirmed Type cyclobenzaprine 10 mg PO TID PRN #14 tab 04/02/18 Rx Allergies Allergy/AdvReac Type Severity Reaction Status Date / Time aspirin Allergy Verified 05/06/18 17:25 naproxen [From Aleve] Allergy Verified 05/06/18 17:25 Review of Systems Review of Systems Patient complains mild nausea. She complains of left lower quadrant pain. All systems reviewed & are unremarkable except as noted in HPI and below Exam Vital Signs (past 8 hours): - 05/06/18 17:25 Temperature 97.1 F L Pulse Rate 72 Respiratory Rate 16 Blood Pressure 147/98 H Pulse Oximetry 98 Oxygen Delivery Method Room Air Narrative Exam Narrative: Patient's HEENT exam within normal limits. No thyromegaly. Lungs are clear to auscultation percussion. Heart is regular rate and rhythm no S3-S4 or murmurs. Abdomen is soft with tenderness left lower quadrant without rebound. Objective Imaging US - abdomen: Radiologist's impression: Solid heterogeneous echogenic mass mid pelvis without discernible blood flow may represent left ovarian torsion Labs Result Diagrams: 05/06/18 18:45 05/06/18 18:45 Labs: Laboratory Results - last 24 hr 05/06/18 05/06/18 05/06/18 18:45 18:45 18:45 WBC 10.3 RBC 4.76 Hgb 14.9 Hct 43.2 MCV 90.7 MCH 31.3 MCHC 34.5 RDW 12.4 Plt Count 222 Neut % (Auto) 80.1 H Lymph % (Auto) 14.6 L [place] % (Auto) 4.9 Eos % (Auto) 0.1 L Baso % (Auto) 0.3 Neut # (Auto) 8300 H PT 12.4 INR 1.1 APTT 30 Sodium 139 Potassium 4.1 Chloride 100 Carbon Dioxide 27 BUN 7 Creatinine 0.40 L Estimated GFR > 60.0 BUN/Creatinine Ratio 17.5 Glucose 276 H Calcium 8.9 Total Bilirubin 0.5 AST 25 ALT 49 Alkaline Phosphatase 64 Total Protein 7.9 Albumin 4.4 Globulin 3.5 Albumin/Globulin Ratio 1.3 Lipase 45 Assessment & Plan (1) Ovarian cyst: Qualifiers: Laterality: left Qualified Code(s): N83.202 - Unspecified ovarian cyst , left side Current visit: Yes Status: Acute Plan: Assessment/Plan Narrative: Left lower quadrant pain and 5 cm mass that may represent left ovarian torsion. Discussed options of monitoring versus proceeding with laparoscopy. If torsion we may be able to save ovary by untwisting or may need to remove ovary. Consent form was reviewed with the patient. Risk of damage to intestines, bladder, ureters, possible need to open abdomen,low risk for infection. Consent form was signed and questions answered. Discussed post op discomforts. Patient will be discharged after surgery as soon as ambulatory and able to tolerate oral pain meds.
[2018-05-07] MEDS: LACTATED RINGERS 1,000 ML 42 ML IV (02:05)
[2018-05-07] MEDS: INSULIN REGULAR 100 UNIT/ML 3 ML VIAL SUBCUT (02:10)
--- NOTE | 2018-05-07 02:40 | SUR.OPER ---
Supine on padded OR bed, head on pillow, arms secured on padded arm boards at <90 degrees abduction, legs uncrossed, safety belt at thigh, tape over blanket over lower legs.
[2018-05-07] MEDS: BUPIVACAINE 0.5% W/ EPI (PF) VIAL 30 ML INJ (03:59)
--- NOTE | 2018-05-07 04:12 | PM.OP.1 ---
Operative Date/Time/Diagnoses Date of procedure: 05/07/18 Time of procedure: 04:12 Pre-op diagnosis: pelvic mass possible left ovarian torsion Post-op diagnosis: other ( normal ovaries with adhesion of omentum and colon to the anterior abdominal wall in the midline) Procedure & Clinicians Procedure: diagnostic laparoscopy with lysis of adhesions Same procedure as scheduled: No ( no mass found) Indications: patient with left lower quadrantabdominal pain and nausea with CT scan and ultrasound showing a 6 cm mass with no blood flow thought to possibly be a left ovarian torsion Surgeon: Ami Montana Click Yes if Unassisted: Yes Anesthesia Type: General Operative Notes Findings: adhesion of the omentum and descending colon to the anterior abdominal wall in the midline. normal ovaries bilaterally. normal appendix. Closure Type: primary Specimen(s): none sent Estimated Blood Loss (mL): 10 Blood products transfused: none Procedure in detail: Patient was brought to the operating room where she underwent general anesthesia. No antibiotics were indicated. Warming was in place. Pulsatile stockings in place and functional. A check system was reviewed with the staff in the room prior to beginning the case. A Bush catheter was placed. Patient was prepped and draped in the usual sterile fashion. She was in a supine position. The area of the umbilical incision was injected with 0.5% Marcaine with epinephrine. An incision was made with a scalpel and the incision carried down to the fascial layer which was incised transversely and held with 0 Vicryl suture. The perineum was entered bluntly and the Terry cannula was placed in the abdomen and the abdomen insufflated with CO2. Under direct visualization 5 mm trocars were placed in the right left lower quadrant. The adhesions of the omentum to the anterior abdominal wall were removed using the PK generator. There is still a segment of the descending colon adhesed to the anterior abdominal wall which was left in place. Some further lysis of adhesions revealed the normal-appearing ovaries bilaterally. The CO2 was allowed to escape from the abdomen and the trocars removed. The fascial layer of the umbilical incision was closed with 2, 0 Vicryl sutures and the skin was closed with 4-0 Monocryl. Counts of instruments and sponges were correct. Patient went to the recovery room in good condition. The Bush was removed. Complications: none Condition: stable Disposition: same day surgery Plan for aftercare: home when awake and stable
--- NOTE | 2018-05-07 05:11 | PC.ADMIT ---
[address] Admission Note: Pt arrived to room 227 at appr 0430 from the PACU via a stretcher. Pt arrives and is somulent but arouses to voice and touch. Pt oriented to self and place, able to answer most questions for admission assessment, all belongings remain at the bedside. Pt on 2l O2 with sats 93%, diminished lung sounds, occasional snoring noted. Pt denies pain and nausea, hypo bt's. Pt has three bandages to abdomen with steri strips in place to sites, all are CDI. Pt oriented to call light and room, will need further reorienting as she becomes more alert. Bed alarm on. The patient,Krystle Jacobson,42 y/o, was given written information regarding hospital policies, unit procedures and contact persons. Patient's smoking status: Former smoker. Vital Signs - 8 hr 05/07/18 01:30 05/07/18 02:08 05/07/18 04:08 Temperature 97.7 F 97.8 F Pulse Rate 75 103 H 96 H Respiratory Rate 16 15 16 Blood Pressure 134/78 137/88 Blood Pressure [Left Arm] 142/85 H Pulse Oximetry 98 98 89 L 05/07/18 04:13 05/07/18 04:18 05/07/18 04:23 Temperature Pulse Rate 94 H 94 H 92 H Respiratory Rate 17 17 17 Blood Pressure 132/88 133/83 125/87 Blood Pressure [Left Arm] Pulse Oximetry 95 95 94 05/07/18 04:30 05/07/18 05:00 Temperature 97.6 F 97.8 F Pulse Rate 95 H 88 Respiratory Rate 16 16 Blood Pressure 139/81 132/77 Blood Pressure [Left Arm] Pulse Oximetry 95 94
[2018-05-07] MEDS: OXYCODONE/ACETAMINOPHEN 5/325 TABLET 2 TAB PO (08:40)
--- NOTE | 2018-05-07 10:27 | PC.NURSE ---
Discharge Note: Patient discharged home with significant other at 1010. Discharge instructions reviewed with patient and SO. No questions at time of discharge. No voiced concerns at time of discharge by patient. IV site removed. Patient taken to POV at 1010 via wheelchair.
--- NOTE | 2018-05-07 10:42 | CM.DANOTE ---
DCP Chart Review/Discharge Home Patient is a 42 year old female who was admitted today 05/07/18 for Abd Pain. Pt has [facility] and [place] for insurance and her PCP is Dr. Montana. EMR was reviewed. Per MD, pt is medically stable for d/c home with spouse today and no barriers identified to discharge. Per RN, spouse bedside and able to provide transport home today and no identified concerns. Plan: Patient to d/c home this morning via spouse POV and no SW needs at this time. BEN Roche
== END 2018-05-07 10:10 | disposition home or self-care (01) ==
LOC: ED 22:24 → AC 05-07 01:25
PROVIDERS: Emergency Medicine; Admitting Provider Specialist; Emergency Provider Nurse Practitioner Family; Visit Provider Specialist
PROC: (CPT 49320; principal; 2018-05-07 02:00)
DX: K66.0 Peritoneal adhesions (postprocedural) (postinfection) (principal); R10.32 Left lower quadrant pain; E11.9 Type 2 diabetes mellitus without complications; E28.2 Polycystic ovarian syndrome; Z87.891 Personal history of nicotine dependence
CPT/HCPCS: 44180; 36591; 74177; 76856; 80053; 81003; 82962; 83690; 85025; 85610; 85730; 96361; 96374; 96375; 96376; 99282; 99284; G0378; J1170; J2405; J2704; J3010